=== PATIENT | female | born 1980 | race Caucasian/White ===

== ENCOUNTER → 2018-04-27 13:50 | Outpatient (CLI) | payer OTHER, SELFPAY ==
[2018-04-27 14:18] LABS: Amphetamine/Metha Screen,Urine Negative ng/mL (<1000); Barbiturates Screen,Urine Negative ng/mL (<200); Benzodiazepines Screen,Urine Negative ng/mL (<200); Cannabinoid Screen,Urine Negative ng/mL (<50); Cocaine Screen,Urine Negative ng/mL (<300); Methadone Screen,Urine Negative ng/mL (<300); Opiate Screen,Urine Negative ng/mL (<300); Phencyclidine Screen,Urine Negative ng/mL (<25)
== END ==
PROVIDERS: Visit Provider Nurse Practitioner Family
DX: Z79.899 Other long term (current) drug therapy (principal)
CPT/HCPCS: 80305

== ENCOUNTER → 2018-11-23 14:03 | Outpatient (CLI) | payer BC, SELFPAY ==
[2018-11-23 16:04] LABS: Amphetamine/Metha Screen,Urine Negative ng/mL (<1000); Barbiturates Screen,Urine Negative ng/mL (<200); Benzodiazepines Screen,Urine Negative ng/mL (<200); Cannabinoid Screen,Urine Positive ng/mL (<50); Cocaine Screen,Urine Negative ng/mL (<300); Methadone Screen,Urine Negative ng/mL (<300); Opiate Screen,Urine Negative ng/mL (<300); Phencyclidine Screen,Urine Negative ng/mL (<25)
== END ==
PROVIDERS: Visit Provider Nurse Practitioner Family
DX: Z79.899 Other long term (current) drug therapy (principal)
CPT/HCPCS: 80305

== ENCOUNTER 2019-01-03 08:21 | Observation (INO) ==
--- NOTE | 2019-01-03 08:49 | Emergency Department Note ---
ED Disposition Clinical Impression: Abdominal pain, Bacterial enterocolitis Disposition: Admitted as Observation Condition on Discharge: Good Instructions: DI for Acute Abdomen Referrals: Will Campa MD [Primary Care Provider] - - Critical Care Critical Care Time: No Attestation: On 01/03/19, the high probability of a clinically significant, sudden or life threatening deterioration of the following system(s) required my full and direct attention, intervention and personal management. The time I documented below is in addition to time spent performing reported procedures but includes the following listed in this critical care notation. Medical Decision Making - Medical Records Medical records reviewed: Yes: I reviewed the patient's medical records. - Lj Inquiry Pt receiving controlled substance: No Vital Signs: 01/03/19 08:33 01/03/19 10:34 Temperature 97.7 F Temperature Source Oral Pulse Rate [Right Radial] 111 H 105 H Respiratory Rate 22 Blood Pressure [Right Arm] 140/75 133/83 Blood Pressure Mean [Right Arm] 96 99 Blood Pressure Source [Right Arm] Automatic Cuff Blood Pressure Position [Right Arm] Supine 02 Sat by Pulse Oximetry 98 97 Oxygen Delivery Method Room Air - Lab Data Lab results reviewed: Yes: I reviewed the patient's lab results. Lab Results 01/03/19 09:30: WBC 17.6 H, RBC 4.79, Hgb 15.0, Hct 46.3, MCV 96.7, MCH 31.2, MCHC 32.3, RDW 14.0, Plt Count 289, MPV 7.5, Neut % (Auto) 74.5, Lymph % (Auto) 19.7, [place] % (Auto) 4.5, Eos % (Auto) 1.1, Baso % (Auto) 0.3, Neut # (Auto) 13.1 H, Lymph # (Auto) 3.5, [place] # (Auto) 0.8, Eos # (Auto) 0.2, Baso # (Auto) 0.1, Total Counted 100, Neutrophils % (Manual) 78 H, Band Neutrophils % 1.0, Lymphocytes % (Manual) 13, Monocytes % (Manual) 6, Eosinophils % (Manual) 1, Basophils % (Manual) 1.0, Platelet Estimate Normal, RBC Morphology Normal 01/03/19 09:30: Sodium 134 L, Potassium 4.7, Chloride 100, Carbon Dioxide 24, Anion Gap 14.7, BUN 12, Creatinine 0.85, Estimated Creat Clear 126, Estimated GFR 74, Est GFR ( Amer) 90, Glucose 130 H, Calcium 9.5, Total Bilirubin 0.3, AST 11 L, ALT 21, Alkaline Phosphatase 82, Total Protein 7.8, Albumin 3.8, Globulin 4.0 H, Albumin/Globulin Ratio 1.0 L, Amylase 46, Lipase 107 01/03/19 09:55: Urine Color Yellow, Urine Appearance Cloudy, Urine pH 6.0, Ur Specific [place] 1.010, Urine Protein Trace, Urine Glucose (UA) Negative, Urine Ketones Negative, Urine Blood 3+, Urine Nitrate Negative, Urine Bilirubin Negative, Urine Urobilinogen 0.2, Ur Leukocyte Esterase Negative, Urine RBC 3-5, Urine WBC 3-5, Ur Squamous Epith Cells 10-20, Urine Bacteria 1+ 01/03/19 09:55: Urine HCG, Qual Negative Result diagrams: 01/03/19 09:30 01/03/19 09:30 Orders (Tests/Meds): ED MEDICATIONS Discontinued Medications Generic Name Dose Route Start Last Admin Trade Name Freq PRN Reason Stop Dose Admin Sodium Chloride 500 mls @ 999 mls/hr 01/03/19 11:15 01/03/19 11:42 Sod Chlor 0.9% 1000ml Bag IV 01/03/19 11:45 Not Given .Q31M COLLETTE Sodium Chloride 1,000 mls @ 999 mls/hr 01/03/19 11:45 01/03/19 11:45 Sod Chlor 0.9% 1000ml Bag IV 01/03/19 12:45 999 mls/hr .Q1H1M COLLETTE Administration Abdominal Pain HPI - General Chief Complaint: Abdominal Pain Stated Complaint: dizzy v/d Time Seen by Provider: 01/03/19 08:48 Mode of Arrival: Wheelchair Limitations: No Limitations Description of Symptoms (Recalled from ER Triage Doc. by RN): PT C/O NAUSEA AND DIARRHEA THAT BEGAN AT 0300. PT STATES THAT SHE FEELS FATIGUE, WEAK AND DIZZY AT TIMES. PT C/O ABD CRAMPING IN THE EPIGASTRIC REGION - History of Present Illness MD complaint: abdominal pain Onset (ago): hour(s) (6) Consistency: constant Location: LUQ, RUQ Severity: severe Quality: aching Radiation: none Migration to: no migration Relieving factors: nothing Exacerbating factors: nothing Associated symptoms: nausea, vomiting, diarrhea, syncope - Related Data LMP (females 10-50): current Home Medications Medication Instructions Recorded Confirmed Cariprazine HCl [Vraylar] 1.5 mg PO DAILY 01/03/19 01/03/19 clonazePAM [Clonazepam] 0.5 mg PO BID 01/03/19 01/03/19 lamoTRIgine [Lamotrigine] 25 mg PO BID 01/03/19 01/03/19 Allergies Allergy/AdvReac Type Severity Reaction Status Date / Time risperidone AdvReac Intermediate Galactorrhe Verified 11/23/18 10:14 [facility] History - Hepatitis A Screen Drug use history?: No High risk sexual behaviors?: No History of sexually transmitted infection?: No Currently employed?: No Childcare worker?: No Do you have indoor plumbing?: Yes Do you have electricity?: Yes Attestation statement:: This patient has been screened for Hepatitis A risk factors. Medical History: Reports:: Anxiety, Depression Other Medical History: Reports: Other Comment: Severe manic Bipolar 1 w/ psychotic behavior Other Surgeries: Yes: No Previous Surgery Amputation: No Fractures: No - Social History Smoking Status: Current every day smoker Tobacco Type: cigarettes # Packs/Day (cigarettes): 1 Alcohol Intake: never Substance Use Type: denies use Occupational Status: employed - Psychiatric History Expresses thoughts of harming self/others: None Pschychiatric History:: Reports:: Anxiety, Bipolar Disorder, Depression Family Hx:: No significant family history ROS Obtained: Yes Systems reviewed as appropriate & no additional complaints - Constitutional Constitutional: Reports malaise - Eyes Eyes: Reports system reviewed and no additional complaints, except as docu - ENT Ears, Nose, Mouth, and Throat: Reports system reviewed and no additional complaints, except as docu - Cardiovascular Cardiovascular: Reports system reviewed and no additional complaints, except as docu - Respiratory Respiratory: Yes system reviewed and no additional complaints, except as docu - Gastrointestinal Gastrointestingal: Reports: abdominal pain, diarrhea, nausea, vomiting. Denies: coffee ground emesis, vomiting blood, bright red blood in stools, black, tarry stools - Genitourinary Female Genitourinary: Reports system reviewed and no additional complaints, except as docu - Musculoskeletal Musculoskeletal: Reports system reviewed and no additional complaints, except as docu - Integumentary/Breasts Skin/Breast: Reports system reviewed and no additional complaints, except as docu - Neurologic Neurologic: Reports system reviewed and no additional complaints, except as docu - Endocrine Endocrine: Reports system reviewed and no additional complaints, except as docu - Hematologic/Lymphatic Henatologic/Lymphatic: Reports system reviewed and no additional complaints, except as docu - Allergic/Immunologic Allergic/Immunologic: Reports system reviewed and no additional complaints, except as docu Physical Exam - General General appearance: alert, in no apparent distress - Head Head exam: atraumatic, normocephalic, normal inspection - Eye Eye exam: Present: normal appearance, PERRL, EOMI - ENT ENT exam: Present: mucous membranes moist - Neck Neck exam: Present: normal inspection, full ROM, trachea midline. Absent: meningismus, lymphadenopathy - Chest Chest inspection: Present: normal inspection, symmetric chest wall rise. Absent: tenderness - Respiratory Respiratory exam: Present: normal lung sounds bilaterally. Absent: respiratory distress - Cardiovascular Cardiovascular exam: Present: regular rate, normal rhythm. Absent: JVD - Abdominal Exam Abdominal exam: Present: soft, tenderness, normal bowel sounds. Absent: guarding, rebound, rigidity, organomegaly, trauma, mass, bruit, pulsatile mass, hernia Abdominal tenderness: Present: RUQ, LUQ, mild - Extremities Exam Extremities exam: Present: normal inspection, full ROM, normal capillary refill. Absent: calf tenderness - Back Exam Back exam: Present: normal inspection. Absent: tenderness - Neurological Exam Neurological exam: Present: alert, oriented X3 - Psychiatric Psychiatric exam: Present: normal affect, normal mood - Skin Skin exam: Present: warm, dry, intact, normal color - Lymphatic Lymphatic Findings: no adenopathy
[2019-01-03 09:34] LABS: Basophils # 0.1 K/mm3 (0-0.2); Basophils % 0.3 % (0.1-2.0); Eosinophils # 0.2 K/mm3 (0.0-0.4); Eosinophils % 1.1 % (0.1-12.0); Hematocrit 46.3 % (37.0-47.0); Lymphocytes # 3.5 K/mm3 (0.7-4.5); Lymphocytes % 19.7 % (10-50); Mean Corpuscular HGB Conc 32.3 g/dL (31.8-35.4); Mean Corpuscular Volume 96.7 fl (81-99); Mean Platelet Volume 7.5 fl (7.4-10.4); Monocytes # 0.8 K/mm3 (0.1-1.0); Monocytes % 4.5 % (1.7-9.3); Neutrophils # 13.1 K/mm3 (1.8-7.8); Neutrophils % 74.5 % (37.0-80.0); Platelet Count 289 K/mm3 (142-424); Red Blood Count 4.79 M/mm3 (4.20-5.40); White Blood Count 17.6 K/mm3 (4.8-10.8)
[2019-01-03 09:47] LABS: Albumin Level 3.8 gm/dL (3.4-5.0); Anion Gap 14.7 mEq/L (5-15); Bilirubin,Total 0.3 mg/dL (0.2-1.0); Calcium 9.5 mg/dL (8.5-10.1); Total Protein,Serum 7.8 gm/dL (6.4-8.2)
[2019-01-03 10:06] LABS: Microscopic, Urine URINE MICROSCOPIC (MICROSCOPIC)
[2019-01-03 10:08] LABS: Appearance,Urine CLOUDY (Clear); Bilirubin,Urine Negative (Negative); Blood, Urine 3+ (Negative); Color,Urine YELLOW (Yellow); Glucose,Urine (UA) Negative (Negative); Ketones,Urine Negative (Negative); Leukocyte Esterase,Urine Negative (Negative); Protein,Urine TRACE (Negative); Urobilinogen,Urine 0.2 EU/dl (0.2)
[2019-01-03 10:14] LABS: Eosinophils % 1 % (0-3); Lymphocytes % 13 % (10-50); Monocytes % 6 % (2-9); Neutrophils % 78 % (42-76); RBC Morphology Normal; Total Cells Counted 100
[2019-01-03 10:20] LABS: Bacteria,Urine 1+ /lpf
--- NOTE | 2019-01-03 14:21 | Pharmacy Consult Notes ---
[facility] Pharmacy VTE Monitoring - Patient Demographics Admission date: 01/03/19 Report Date: 01/03/19 Time: 14:21 Allergies/Adverse Reactions: Patient Allergies risperidone Adverse Reaction (Intermediate, Verified 11/23/18 10:14) Galactorrhea Height: 1.63 m Weight: 90.718 kg Patient Problems: Current Active Problems Abdominal pain (Acute) Bacterial enterocolitis (Acute) - VTE Risk Labs: VTE Related Lab Results Hgb 15.0 g/dL (12.2-16.2) 01/03/19 09:30 Hct 46.3 % (37.0-47.0) 01/03/19 09:30 Plt Count 289 K/mm3 (142-424) 01/03/19 09:30 BUN 12 mg/dL (7-18) 01/03/19 09:30 Creatinine 0.85 mg/dL (0.55-1.02) 01/03/19 09:30 Estimated Creat Clear 126 mL/min (50-200) 01/03/19 09:30 - Prophylaxis VTE Prophylaxis Ordered?: Yes Types of VTE Prophylaxis: TEDS Knee High Location of Applied Device: Bilateral Lower Extremeties - VTE Diagnosis Confirmed Treatment or plan recommended: Continue Current Treatment
[2019-01-04 06:54] LABS: Basophils % 0.4 % (0.1-2.0); Eosinophils # 0.2 K/mm3 (0.0-0.4); Eosinophils % 2.2 % (0.1-12.0); Hematocrit 41.1 % (37.0-47.0); Lymphocytes # 2.7 K/mm3 (0.7-4.5); Lymphocytes % 34.1 % (10-50); Mean Corpuscular HGB Conc 31.4 g/dL (31.8-35.4); Mean Corpuscular Volume 97.6 fl (81-99); Mean Platelet Volume 7.4 fl (7.4-10.4); Monocytes # 0.6 K/mm3 (0.1-1.0); Monocytes % 7.3 % (1.7-9.3); Neutrophils # 4.5 K/mm3 (1.8-7.8); Neutrophils % 55.9 % (37.0-80.0); Platelet Count 239 K/mm3 (142-424); Red Blood Count 4.21 M/mm3 (4.20-5.40); Red Cell Distribution Width 13.9 % (11.5-17.5)
[2019-01-04 07:03] LABS: Albumin/Globulin Ratio 0.9 (1.1-1.8); Anion Gap 8.6 mEq/L (5-15); Bilirubin,Total 0.4 mg/dL (0.2-1.0); Globulin 3.4 gm/dl (1.3-3.2); Total Protein,Serum 6.4 gm/dL (6.4-8.2)
[2019-01-04 07:22] LABS: Calcium 8.5 mg/dL (8.5-10.1)
--- NOTE | 2019-01-04 16:51 | History & Physical Report ---
*Admission Date: 01/03/19 *Chief complaint: weakness and felt faint *History of present illness: this wf presented to the ed with acute onset of vomiting and diarrhea with near syncope - C/O NAUSEA AND DIARRHEA THAT BEGAN AT 0300. PT STATES THAT SHE FEELS FATIGUE, WEAK AND DIZZY AT TIMES. PT C/O ABD CRAMPING IN THE EPIGASTRIC REGIOn, pt had abn ct and was admitted for ivf and abx - pt did meet sirs criteria H History I have reviewed the patient's past medical history: Yes Medical History: Reports:: Anxiety, Depression Denies:: Cancer, Diabetes Mellitus Type 1, Diabetes Mellitus Type 2 *Have you ever received a pneumonia vaccine?: No *Have you received a flu vaccine this season?: No Other Medical History: Reports: Other Other Surgeries: Yes: No Previous Surgery, (x2) Amputation: No Fractures: No - *Social History Educational Level: Attended College Smoking Status: Current every day smoker Tobacco Type: cigarettes # Packs/Day (cigarettes): 1 Alcohol Intake: never Substance Use Type: marijuana Last Used Substance: unknown *Occupational Status:: employed Housing: house Household Members: spouse, children *Travel in the last 8 weeks: None - Psychiatric History Expresses thoughts of harming self/others: None Pschychiatric History:: Reports:: Anxiety, Bipolar Disorder, Depression Family Hx:: Hypertension Review of Systems - Review of Systems Review of systems:: pertinent systems reviewed and negative unless documented below - Constitutional Denies headache(s) - Eyes Denies change in vision - ENT Denies sore throat - *Cardiovascular Denies chest pain at rest - *Respiratory Denies cough - *Gastrointestinal Reports abdominal pain, Reports loose stools, Reports nausea, Reports vomiting, Denies bright, red blood in stools - *Genitourinary Denies blood in urine - *Musculoskeletal Denies joint pain - Integumentary/Breasts Denies rash - *Neurologic Denies seizure-like activity - Psychiatric Denies anxiety Meds Home Medications Medication Instructions Recorded Confirmed Type Cariprazine HCl [Vraylar] 1.5 mg PO DAILY 01/03/19 01/03/19 History clonazePAM [Clonazepam] 0.5 mg PO BID 01/03/19 01/03/19 History lamoTRIgine [Lamotrigine] 25 mg PO BID 01/03/19 01/03/19 History Allergies Allergy/AdvReac Type Severity Reaction Status Date / Time risperidone AdvReac Intermediate Galactorrhe Verified 11/23/18 10:14 a Exam Vital signs and Labs for Last 24 Hours: Temp Pulse Resp BP Pulse Ox 97.7 F 102 H 16 144/87 H 99 01/04/19 15:51 01/04/19 15:51 01/04/19 15:51 01/04/19 15:51 01/04/19 15:51 Laboratory Results - last 24 hr 01/03/19 15:30: Stl Aeromonas (PCR) Not detected, Stl C. cayetanensis PCR Not detected, Stool Rotavirus (PCR) Not detected, Stl Adenov F 40/41 PCR Not detected, Stool Astrovirus (PCR) Not detected, Stool Campylobacter PCR Not detected, Stl C.difficile Tox PCR Not detected, Stool Cryptosporidium PCR Not detected, Stl E.coli Shiga Tox PCR Not detected, Stool E coli O157 PCR Not detected, Stl Enterotoxigenic E PCR Not detected, Stool EPEC (PCR) Not detected, Stool EAEC (PCR) Not detected, Stl E. histolytica PCR Not detected, Stool Giardia Lamblia PCR Not detected, Stool Salmonella PCR Not detected, Stool Sapovirus (PCR) Not detected, Stl P. shigelloides PCR Not detected, Stl Shigella/EIEC PCR Not detected, St Y.enterocolitica PCR Not detected, Stool Vibrio (PCR) Not detected, Stl Vibrio cholerae PCR Not detected, Stl Norovirus GI/GII PCR Not detected 01/04/19 06:37: WBC 8.0 D, RBC 4.21, Hgb 13.0 D, Hct 41.1, MCV 97.6, MCH 30.7, MCHC 31.4 L, RDW 13.9, Plt Count 239, MPV 7.4, Neut % (Auto) 55.9, Lymph % (Auto) 34.1, [place] % (Auto) 7.3, Eos % (Auto) 2.2, Baso % (Auto) 0.4, Neut # (Auto) 4.5, Lymph # (Auto) 2.7, [place] # (Auto) 0.6, Eos # (Auto) 0.2, Baso # (Auto) 0.0 01/04/19 06:37: Sodium 139, Potassium 4.6, Chloride 107, Carbon Dioxide 28, Anion Gap 8.6, BUN 5 L D, Creatinine 0.82, Estimated Creat Clear 132, Estimated GFR 77, Est GFR ( Amer) 93, Glucose 101 D, Calcium 8.5 D, Total Bilirubin 0.4, AST 8 L D, ALT 17, Alkaline Phosphatase 63, Total Protein 6.4, Albumin 3.0 L D, Globulin 3.4 H, Albumin/Globulin Ratio 0.9 L I & O for Last 24 hours: Intake & Output 01/02/19 01/03/19 01/04/19 01/05/19 11:59 11:59 11:59 11:59 Intake Total 3170 / 3170 480 / 480 Balance 3170 / 3170 480 / 480 Weight 200 lb 201 lb 7 oz - Constitutional no acute distress, obese - *Routine HEENT Exam Head: Present: normocephalic Eye: Present: EOMI, PERRL ENT: Present: mucous membranes dry - *Routine Neck Exam Present: supple - *Routine Respiratory Exam Present: CTA bilaterally - *Routine Cardiovascular Exam Present: RRR, murmur - *Routine Abdominal Exam Present: soft - *Routine Extremities Exam Present: full ROM - *Routine Skin Exam Present: intact - *Routine Neurological Exam Present: alert, oriented X3, CN II-XII intact - Routine Psychiatric Exam Present: normal affect Assessment and Plan (1) Enteritis Current visit: Yes Status: Acute Category: Medical Code(s): K52.9 - Noninfective gastroenteritis and colitis, unspecified (2) Obesity (BMI 30.0-34.9) Current visit: Yes Status: Acute Category: Medical Code(s): E66.9 - Obesity, unspecified (3) SIRS (systemic inflammatory response syndrome) Current visit: Yes Status: Acute Category: Medical Code(s): R65.10 - Systemic inflammatory response syndrome (SIRS) of non-infectious origin without acute organ dysfunction
--- NOTE | 2019-01-05 11:38 | Discharge Summary ---
General - General Admission date:: 01/03/19 Discharge date: 01/05/19 HPI HPI: this wf presented to the ed with acute onset of vomiting and diarrhea with near syncope - C/O NAUSEA AND DIARRHEA THAT BEGAN AT 0300. PT STATES THAT SHE FEELS FATIGUE, WEAK AND DIZZY AT TIMES. PT C/O ABD CRAMPING IN THE EPIGASTRIC REGIOn, pt had abn ct and was admitted for ivf and abx - pt did meet sirs criteria Hospital Course Hospital Course: pt with improvement in gi sx and was jeanmarie diet with dec diarrhea and improved wbc with ivf and abx - pt was able to ambulate and will be d/c to home but has improved sx but still some sx and will not be able to return to work till at least 5 more days of abx and will be d/c to see us on 01/09 and return to work 01/10 Objective Vital signs: Temp Pulse Resp BP Pulse Ox 98.3 F 92 H 18 135/89 95 01/05/19 08:00 01/05/19 08:00 01/05/19 08:00 01/05/19 08:00 01/05/19 08:00 no acute distress, obese - *Routine HEENT Exam Head: Present: normocephalic Eye: Present: EOMI, PERRL. Absent: conjunctival icterus ENT: Present: mucous membranes moist - *Routine Neck Exam Present: supple - *Routine Respiratory Exam Present: CTA bilaterally - *Routine Cardiovascular Exam Present: murmur - *Routine Abdominal Exam Present: soft. Absent: tenderness - *Routine Extremities Exam Present: full ROM - *Routine Skin Exam Present: intact - *Routine Neurological Exam Present: alert, oriented X3, CN II-XII intact - Routine Psychiatric Exam Present: normal affect DS: Diagnosis - Discharge Diagnosis (1) Enteritis Status: Acute (2) Obesity (BMI 30.0-34.9) Status: Acute (3) SIRS (systemic inflammatory response syndrome) Status: Acute (4) Enterocolitis Status: Acute Discharge Plan - Patient Discharge Instructions ACTIVITY: Continue current activity DIET: continue same diet Patient Instructions: Acute Abdominal Pain, DI for Abdominal Pain-Adult, DI for Nausea -- Adult - Follow up Plan Disposition: Home, Self-Correction Medications: Home Medications Medication Instructions Recorded Confirmed Type Cariprazine HCl [Vraylar] 1.5 mg PO DAILY 01/03/19 01/03/19 History clonazePAM [Clonazepam] 0.5 mg PO BID 01/03/19 01/03/19 History lamoTRIgine [Lamotrigine] 25 mg PO BID 01/03/19 01/03/19 History Ondansetron HCl [Zofran 4mg Tab] 4 mg PO QID #28 tab 01/05/19 Rx metroNIDAZOLE [Flagyl 500mg 500 mg PO Q8H #21 tab 01/05/19 Rx Tablet] Prescriptions/Medication Reconciliation: New metroNIDAZOLE [Flagyl 500mg Tablet] 500 mg PO Q8H #21 tab Ondansetron HCl [Zofran 4mg Tab] 4 mg PO QID #28 tab Continued lamoTRIgine [Lamotrigine] 25 mg PO BID Cariprazine HCl [Vraylar] 1.5 mg PO DAILY clonazePAM [Clonazepam] 0.5 mg PO BID - Problem Reconciliation Problems Reviewed?: Yes
== END 2019-01-05 12:52 | disposition home or self-care (01) ==
LOC: 2ND 08:21 → ER 08:21 → 2ND 14:20
PROVIDERS: ADMIT Emergency Medicine; ATTEND Emergency Medicine
CPT/HCPCS: 36415; 74176; 80053; 81001; 81025; 82150; 83690; 85007; 85025; 87506; 96366; 99284; G0378; J2543

== ENCOUNTER → 2019-03-08 17:06 | Outpatient (CLI) | payer BC, SELFPAY ==
[2019-03-08 19:41] LABS: Amphetamine/Metha Screen,Urine Negative ng/mL (<1000); Barbiturates Screen,Urine Negative ng/mL (<200); Benzodiazepines Screen,Urine Negative ng/mL (<200); Cannabinoid Screen,Urine Positive ng/mL (<50); Cocaine Screen,Urine Negative ng/mL (<300); Methadone Screen,Urine Negative ng/mL (<300); Opiate Screen,Urine Negative ng/mL (<300); Phencyclidine Screen,Urine Negative ng/mL (<25)
== END ==
PROVIDERS: Visit Provider Nurse Practitioner Family
DX: Z79.899 Other long term (current) drug therapy (principal)
CPT/HCPCS: 80305

== ENCOUNTER → 2020-03-03 11:55 | Outpatient (CLI) | payer BC, SELFPAY ==
[2020-03-03 13:22] LABS: Alanine Aminotransferase 27 U/L (12-78); Albumin Level 4.8 g/dl (3.5-5.0); Albumin/Globulin Ratio 1.7 (1.1-1.8); Alkaline Phosphatase 108 U/L (38-126); Anion Gap 15.9 mEq/L (5-15); Aspartate Amino Transferase 34 U/L (14-36); Bilirubin,Total 0.6 mg/dl (0.2-1.3); Blood Urea Nitrogen 9 mg/dl (7-17); Calcium 10.1 mg/dl (8.4-10.2); Carbon Dioxide 27 mmol/L (22.0-30.0); Chloride 100 mmol/L (98-107); Estimated Glomerular Filt Rate 110 ml/min (>60); GFR (African American) 133 ML/MIN (>60); Globulin 2.9 g/dL (1.3-3.2); Glucose 121 mg/dl (74-100); Potassium 3.9 mmoL/L (3.5-5.1); Sodium 139 mmol/L (136-145); Total Protein,Serum 7.7 g/dl (6.3-8.2)
[2020-03-03 13:25] LABS: Basophils # 0.1 K/mm3 (0-0.2); Eosinophils # 0.1 K/mm3 (0.0-0.4); Eosinophils % 1.2 % (0.1-12.0); Hematocrit 50.3 % (37.0-47.0); Hemoglobin 16.9 g/dL (12.2-16.2); Lymphocytes # 1.7 K/mm3 (0.7-4.5); Lymphocytes % 21.2 % (10-50); Mean Corpuscular HGB Conc 33.5 g/dL (31.8-35.4); Mean Corpuscular Volume 101.4 fl (81-99); Mean Platelet Volume 9.2 fl (7.4-10.4); Monocytes # 0.5 K/mm3 (0.1-1.0); Monocytes % 5.7 % (1.7-9.3); Neutrophils # 5.6 K/mm3 (1.8-7.8); Neutrophils % 70.9 % (37.0-80.0); Platelet Count 305 K/mm3 (142-424); Red Blood Count 4.96 M/mm3 (4.20-5.40); Red Cell Distribution Width 15.2 % (11.5-17.5); White Blood Count 7.9 K/mm3 (4.8-10.8)
[2020-03-03 13:36] LABS: Hemoglobin A1C 5.3 % (4.0-6.0)
[2020-03-03 13:53] LABS: Thyroid Stimulating Hormone 1.95 uIU/mL (0.465-4.68)
[2020-03-03 14:11] LABS: Vitamin B12 214 pg/mL (239-931)
[2020-03-03 14:21] LABS: Iron 164 ug/dL (37-170)
[2020-03-03 14:30] LABS: Total Iron Binding Capacity 360 ug/dL (265-497)
[2020-03-11 10:45] LABS: 1,25 Dihydroxy Vitamin D 53 pg/mL (.); 1,25-Dihydroxy, Vitamin D-2 <10 pg/mL (.); 1,25-Dihydroxy, Vitamin D-3 49 pg/mL (.)
== END ==
PROVIDERS: Visit Provider Nurse Practitioner Psychiatric/Mental Health
DX: Z00.00 Encounter for general adult medical examination without abnormal findings (principal); Z79.899 Other long term (current) drug therapy
CPT/HCPCS: 36415; 80053; 82607; 82652; 83036; 83540; 83550; 84443; 85025

== ENCOUNTER 2020-12-28 09:11 | Emergency (ER) | payer BC, SELFPAY ==
[2020-12-28 09:30] VITALS: BP 162/105; PULSE 100; RESP 20; TEMP 36.7; O2SAT 98; BMI 34.3
--- NOTE | 2020-12-28 10:04 | HMH.EDUTC ---
[facility] Disposition Clinical Impression: Encounter for laboratory testing for COVID-19 virus, Viral syndrome Disposition: Home, Self-Care Condition on Discharge: Good Instructions: DI for Viral Syndrome, DI for COVID-19 (Suspected or Confirmed ), Preventing the Spread of Coronavirus Discharge Instructions Additional Instructions: *Monitor Temp, Over the counter Motrin or Tylenol as directed/as needed Tylenol every 4 hours and Motrin every 6 hours (as long as your family doctor has told you that you can take it) for fever or pa-in. and straight to ER if unable to lower temp less than 101.0 after medication given *Warm salt water gargles may help to soothe the throat *Throat Lozenges *Warm fluids like tea with honey may help to soothe the throat *Sleep elevated *Humidifier/Vaporizer Your throat swab was sent for culture. Those results are typically sent to your primary care. Be sure to follow up in 2-3 days with your family doctor/primary care physician if no improvement so they can review those result and treat if necessary. If you don?t have a primary care doctor, I recommend you get one but in the mean time, you will have to return to a walk in clinic Follow up IMMEDIATELY for new or worsening symptoms or no Noticeable improvement over the next 48-72 hours. 911 for difficulty breathing or swallowing Make sure to follow up with your Family Doctor for re-evaluation of blood pressure You were tested for today for COVID19 your test result should be back in the next 24-48 hours, Check the [facility] to see if your test results are back in the next 48 it may say detected that means your result is positive.You was given handout instructions on how log on and see your results. If you do not have internet access you may call the [facility] for your results [phone] You was given a handout with instructions for Self Quarantine and Self isolation for while you wait on test results and what to do if they are positive If you are positive the Health Dept will be contacting you also Make sure to take your Vitamins Vit. C Vit D and Zinc if you can take them Referrals: Will Campa MD [Primary Care Provider] - As needed Time of Disposition: 10:10 Medical Decision Making - Lj Inquiry Pt receiving controlled substance: No Lj was queried for this patient: No Vital Signs: 12/28/20 09:30 Temperature 98.0 F Temperature Source Oral Pulse Rate [Right Brachial] 100 H Respiratory Rate 20 Blood Pressure [Right Arm] 162/105 H Blood Pressure Mean [Right Arm] 124 Blood Pressure Source [Right Arm] Automatic Cuff Blood Pressure Position [Right Arm] Sitting 02 Sat by Pulse Oximetry 98 Oxygen Delivery Method Room Air Orders (Tests/Meds): ORDERS Category Date Time Status Covid-19 Nasal PCR ([facility]) Routine Lab 12/28/20 09:45 Ordered Medical Decision Narrative: Patient states that she is suppose to see PCP for blood pressure [facility] HPI - General Stated complaint: covid test Time Seen by Provider: 12/28/20 10:04 Mode of Arrival: Ambulatory Source of Information: Patient Limitations: No Limitations Description of Symptoms (Recalled from Triage Doc. by RN): PATIENT C/O FEVER, SWEATS, CHILLS, HEADACHE, AND SWOLLEN LYMPH NODES IN NECK SINCE YESTERDAY. REQUESTING COVID TEST HEENT Symptoms (Recalled from RN notes): Yes Resp Symptoms (Recalled from RN notes): No Skin Symptoms (Recalled from RN notes): No MS Symptoms (Recalled from RN notes): No Functional Status (Recalled from RN notes): WNL - History of Present Illness Provider Complaint: Patient states that she hasnt been feeling well since yesterday Denies known exposure to COVID but is having similar symptoms States that she has been having chills, body aches, and today her lymph nodes was swollen lymph nodes so she came in wanted to get tested for COVID - Related Data Home Medications Medication Instructions Recorded Confirmed Buspirone HCl [Buspar 10mg 20
[2020-12-28 10:19] VITALS: BP 162/105; PULSE 100; RESP 20; TEMP 36.7; O2SAT 98
[2020-12-28 21:18] LABS: UTC Strep Screen (Rapid) Negative (Negative)
== END 2020-12-28 10:21 | disposition home or self-care (01) ==
PROVIDERS: Emergency Provider Nurse Practitioner; PCP Emergency Medicine
DX: B34.9 Viral infection, unspecified (principal); Z20.822 Contact with and (suspected) exposure to COVID-19; F41.8 Other specified anxiety disorders; F17.210 Nicotine dependence, cigarettes, uncomplicated; F12.10 Cannabis abuse, uncomplicated
CPT/HCPCS: 87880; 99203; G0463; U0003

== ENCOUNTER 2022-09-14 10:48 | Emergency (ER) | payer BC, SELFPAY ==
[2022-09-14] VITALS (8 sets, daily range): BP systolic 148–229; BP diastolic 77–134; PULSE 72–121; RESP 16–20; TEMP 36.6–36.8; O2SAT 93–98; BMI 40.7
--- NOTE | 2022-09-14 10:58 | PC.NURSE ---
ED MD AT BEDSIDE
--- NOTE | 2022-09-14 11:00 | CT_ITS ---
FINAL REPORT TECHNIQUE: Thin section axial CT images of the chest were obtained with contrast. 3D reformatted images were also obtained. This study was performed with techniques to keep radiation doses as low as reasonably achievable (ALARA). Individualized dose reduction techniques using automated exposure control or adjustment of mA and/or kV according to the patient's size were employed. CLINICAL HISTORY: chest pain COMPARISON: None FINDINGS: There is no evidence of pulmonary embolism. There is no evidence of thoracic aortic aneurysm or dissection. There is no evidence of mediastinal or hilar mass or adenopathy. Moderate emphysema. There is a posterior right upper lobe nodule measuring 6 mm. Limited images of the upper abdomen are unremarkable. IMPRESSION: No evidence of pulmonary embolism. 6 mm nodule right upper lobe. Six-month follow-up recommended. Reviewed, Interpreted and Dictated by Miguel Hernandez III, MD Transcribed by Deandra Sol Authenticated and [facility]
--- NOTE | 2022-09-14 11:00 | CT_ITS ---
FINAL REPORT TECHNIQUE: Pre-and postcontrast images of the abdomen through the pubic symphysis were performed by computed tomography. Extensive 3-D reconstruction images were performed. A CTA was performed. This study was performed with techniques to keep radiation doses as low as reasonably achievable (ALARA). Individualized dose reduction techniques using automated exposure control or adjustment of mA and/or kV according to the patient''s size were employed. CLINICAL HISTORY: abd pain epigastric pain COMPARISON: None FINDINGS: ABDOMEN/PELVIS: The lung bases are clear. Precontrast images demonstrate no evidence of nephrolithiasis. No adrenal masses are identified. The liver, spleen and pancreas are unremarkable. Sigmoid diverticulosis without evidence of acute diverticulitis. The appendix is unremarkable. There is chronic irregularity of the bilateral parasymphyseal regions of uncertain etiology, could represent sequela from prior injury. CTA: No evidence of abdominal aortic aneurysm or dissection. The SMA, celiac axis, and GARRETT are patent. There is no significant stenosis or calcification. The renal arteries are patent bilaterally without evidence of stenosis. Mild vascular calcifications are noted. The iliac arteries are patent without significant stenosis. IMPRESSION: No evidence of significant arterial stenosis. Reviewed, Interpreted and Dictated by Miguel Hernandez III, MD Transcribed by Deandra Sol Authenticated and [facility]
--- NOTE | 2022-09-14 11:07 | HMH.EDGENADL ---
Discharge Plan Disposition Patient Disposition: Home, Self-Care Condition: Good Chief Complaint: Abdominal Pain Prescriptions Prescriptions: New sucralfate [Carafate] 1 gram tablet 1 g PO TID 28 Days Qty: 84 0RF pantoprazole [Protonix] 40 mg tablet,delayed release (DR/EC) 40 mg PO DAILY 28 Days Qty: 28 0RF No Action aripiprazole [Abilify] 10 mg tablet 10 mg PO QHS Qty: 30 1RF buspirone 10 mg tablet 20 mg PO BID Qty: 120 1RF hydroxyzine pamoate [Vistaril] 25 mg capsule 25 mg PO TID PRN (Reason: for increased anxiety) Qty: 90 0RF lamotrigine [Lamictal] 100 mg tablet 100 mg PO BID Qty: 60 1RF trazodone 100 mg tablet 100 mg PO QHS PRN (Reason: insomnia) Qty: 30 1RF Referrals Follow up/Referrals: Supriya Casillas APRN [Staff Physician] - See instructions Will Campa MD [Primary Care Provider] - See instructions Clinical Impressions Clinical Impression: Abdominal pain, Gastritis Instructions Patient Instructions: DI for Acute Abdominal Pain Print Language Print Language: Chinese Discharge ED Provider: Nilo Stubbs General Adult HPI General Chief complaint: Abdominal Pain Stated complaint: Phys ref, upper abd pain Time Seen by Provider: 09/14/22 14:16 Mode of Arrival: Ambulatory Limitations: No Limitations Description of Symptoms (Recalled from ER Triage Doc. by RN): PT SENT FROM PCP FOR FURTHER EVALUATION OF UPPER EPIGASTRIC PAIN THAT STARTED MONDAY NIGHT. C/O N/V. DIARRHEA THAT STARTED TODAY. DENIES FEVER. History of Present Illness HPI narrative: Patient presents to the emergency department with epigastric abdominal tenderness for the last 3 days. She states that it is continuously worsening and in excruciating pain right now. She states that there is some associated right upper quadrant pain, diarrhea, nausea and vomiting. She denies any fever or chills. States that she has no urinary symptoms. Denies any previous history of similar symptoms. Related Data Previous Rx's Medication Instructions Recorded aripiprazole 10 mg tablet (Abilify) 10 mg PO QHS #30 tabs 06/22/22 buspirone 10 mg tablet 20 mg PO BID . #120 tabs 06/22/22 hydroxyzine pamoate 25 mg capsule 25 mg PO TID PRN for increased 06/22/22 (Vistaril) anxiety #90 caps lamotrigine 100 mg tablet 100 mg PO BID #60 tabs 06/22/22 (Lamictal) trazodone 100 mg tablet 100 mg PO QHS PRN insomnia #30 tabs 06/22/22 pantoprazole 40 mg tablet,delayed 40 mg PO DAILY 4 weeks #28 tabs 09/14/22 release (Protonix) sucralfate 1 gram tablet (Carafate) 1 g PO TID 4 weeks #84 tabs 09/14/22 Allergies Allergy/AdvReac Type Severity Reaction Status Date / Time risperidone AdvReac Intermediate Galactorrhe Verified 09/14/22 10:02 a [facility] Disclaimer: The information contained in this section may have been updated after the patient was seen, as this information can be updated by other users. Medical History Alcohol abuse Bipolar II disorder Generalized anxiety disorder Insomnia Social History Smoking Status: Current every day smoker tobacco type: cigarettes packs per day: 1 second hand exposure: No alcohol intake: never substance use type: marijuana current occupational status: employed Travel in the last 8 weeks: None household members: spouse and children housing: house number of children: 3 ROS Obtained: Yes All systems reviewed & no additional complaints except as documented Gastrointestinal Gastrointestingal: Reports abdominal pain, diarrhea and vomiting Physical Exam General General appearance: alert, anxious and obese Head Head exam: atraumatic, normocephalic and normal inspection Eye Eye exam: Present normal appearance, PERRL and EOMI Chest Chest inspection: Present normal inspection and symmetric chest wall rise Respiratory Respiratory exam: Present normal
--- NOTE | 2022-09-14 11:16 | PC.NURSE ---
Attempted IV access x2. Veins blew both times. Burton RN attempting at this time
[2022-09-14 11:34] LABS: Basophils % 0.3 % (0.1-2.0); Eosinophils # 0.3 K/mm3 (0.0-0.4); Eosinophils % 2.2 % (0.1-12.0); Hematocrit 48.6 % (37.0-47.0); Hemoglobin 16.1 g/dL (12.2-16.2); Lymphocytes # 2.6 K/mm3 (0.7-4.5); Lymphocytes % 18.7 % (10-50); Mean Corpuscular HGB Conc 33.1 g/dL (31.8-35.4); Mean Corpuscular Hemoglobin 31.3 pg (27.0-31.2); Mean Corpuscular Volume 94.5 fl (81-99); Mean Platelet Volume 8.4 fl (7.4-10.4); Monocytes # 0.7 K/mm3 (0.1-1.0); Monocytes % 4.9 % (1.7-9.3); Neutrophils # 10.4 K/mm3 (1.8-7.8); Neutrophils % 73.9 % (37.0-80.0); Platelet Count 310 K/mm3 (142-424); Red Blood Count 5.14 M/mm3 (4.20-5.40); Red Cell Distribution Width 13.9 % (11.5-17.5); White Blood Count 14.1 K/mm3 (4.8-10.8)
--- NOTE | 2022-09-14 11:36 | PC.NURSE ---
checked on pt nothing needed at this time, tap allen at bedside
[2022-09-14 11:48] LABS: Alanine Aminotransferase 29 U/L (12-78); Albumin Level 4.6 g/dl (3.5-5.0); Albumin/Globulin Ratio 1.3 (1.1-1.8); Alkaline Phosphatase 109 U/L (38-126); Anion Gap 18.3 mEq/L (5-15); Aspartate Amino Transferase 31 U/L (14-36); Bilirubin,Total 0.8 mg/dl (0.2-1.3); Blood Urea Nitrogen 10 mg/dl (7-17); Calcium 9.6 mg/dl (8.4-10.2); Carbon Dioxide 28 mmol/L (22.0-30.0); Chloride 97 mmol/L (98-107); Creatinine Clearance Estimated 197 mL/min (50-200); Estimated Glomerular Filt Rate 109 ml/min (>60); GFR (African American) 131 ML/MIN (>60); Globulin 3.6 g/dL (1.3-3.2); Glucose 140 mg/dl (74-100); Lipase 420 U/L (23-300); Potassium 3.3 mmoL/L (3.5-5.1); Sodium 140 mmol/L (136-145); Total Protein,Serum 8.2 g/dl (6.3-8.2)
[2022-09-14 11:54] LABS: HCG Qualitative, Serum Negative (Negative)
--- NOTE | 2022-09-14 12:18 | PC.NURSE ---
Rounded on patient at this time, updated we were waiting on CT results at this time. Pt advised her pain was now at a 2 and she was feeling better then when she came in. No other needs at this time.
--- NOTE | 2022-09-14 12:53 | PC.NURSE ---
PT ASSISTED TO BR
--- NOTE | 2022-09-14 13:05 | PC.NURSE ---
Updated pt that we were waiting on CT results. No new needs at this time
--- NOTE | 2022-09-14 13:26 | PC.NURSE ---
ROUNDED ON PT AT THIS TIME. NO NEEDS VOICED
--- NOTE | 2022-09-14 14:15 | PC.NURSE ---
rounded on pt states she hurting in her stomach relayed message to elder doshi, visitor at bedside
== END 2022-09-14 14:31 | disposition home or self-care (01) ==
PROVIDERS: Emergency Provider Emergency Medicine; PCP Emergency Medicine
DX: K29.70 Gastritis, unspecified, without bleeding (principal); R10.11 Right upper quadrant pain; F17.210 Nicotine dependence, cigarettes, uncomplicated
CPT/HCPCS: 71275; 74174; 80053; 83690; 84703; 85025; 96361; 96374; 96375; 99285; J2405; Q9967

== ENCOUNTER → 2022-11-25 12:55 | Outpatient (CLI) | payer BC, SELFPAY | PROVIDERS: PCP Emergency Medicine; Visit Provider Emergency Medicine | DX: S91.302A Unspecified open wound, left foot, initial encounter (principal); A03.0 Shigellosis due to Shigella dysenteriae | CPT/HCPCS: 87070; 87077; 87186; 87205 ==

== ENCOUNTER 2023-11-24 23:04 | Emergency (ER) | payer BC, SELFPAY ==
[2023-11-24 23:09] VITALS: BP 153/109; PULSE 121; RESP 16; TEMP 36.7; O2SAT 96; BMI 35.2
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
[2023-11-24] MEDS: ACETAMINOPHEN 500MG TAB 1000 MG PO (23:28)
[2023-11-24] MEDS: TET/DIPHTH/PERT-ADULT 0.5ML SYRINGE 0.5 ML IM (23:31)
[2023-11-24 23:46] LABS: Urine Pregnancy, HCG Qual. Negative (Negative)
--- NOTE | 2023-11-25 00:02 | PC.NURSE ---
ring ring finger placed in finger spica splint, wrapped in curlex,
[2023-11-25 00:12] VITALS: BP 142/88; PULSE 101; RESP 18; TEMP 36.6; O2SAT 97
== END 2023-11-25 00:14 ==
PROVIDERS: Emergency Medicine; Emergency Provider Emergency Medicine; PCP Physician Assistant
DX: S62.604A Fracture of unspecified phalanx of right ring finger, initial encounter for closed fracture (principal); M79.641 Pain in right hand; Y04.0XXA Assault by unarmed brawl or fight, initial encounter; Z23 Encounter for immunization
CPT/HCPCS: 73130; 81025; 90471; 90715; 99283

== ENCOUNTER 2024-10-18 09:58 | Outpatient (CLI) | payer BC, SELFPAY ==
[2024-10-18 18:13] LABS: Basophils # 0.1 K/mm3 (0-0.2); Basophils % 0.7 % (0.1-2.0); Eosinophils # 0.1 Kmm3 (0.0-0.4); Eosinophils % 0.8 % (0.1-12.0); Hematocrit 47.3 % (37.0-47.0); Hemoglobin 15.9 g/dL (12.2-16.2); Immature Granulocytes # 0.04 10^3uL; Immature Granulocytes % 0.4 %; Lymphocytes # 3.2 K/mm3 (0.7-4.5); Lymphocytes % 29.8 % (10-50); Mean Corpuscular HGB Conc 33.6 g/dL (31.8-35.4); Mean Corpuscular Hemoglobin 32.5 pg (27.0-31.2); Mean Corpuscular Volume 96.7 fl (81-99); Mean Platelet Volume 10.9 fl (7.4-10.4); Monocytes # 0.8 K/mm3 (0.1-1.0); Monocytes % 7.1 % (1.7-9.3); Neutrophils # 6.6 K/mm3 (1.8-7.8); Neutrophils % 61.2 % (37.0-80.0); Nucleated Red Blood Cells # 0 10^3/uL; Nucleated Red Blood Cells % 0 %; Platelet Count 316 K/mm3 (142-424); Red Blood Count 4.89 M/mm3 (4.20-5.40); Red Cell Distribution Width 15.5 % (11.5-17.5); Red Cell Distribution Width-SD 54.5 fL; White Blood Count 10.7 K/mm3 (4.8-10.8)
[2024-10-18 18:39] LABS: Hemoglobin A1C 6.1 % (4.0-6.0)
[2024-10-18 19:34] LABS: Alanine Aminotransferase 22 U/L (12-78); Albumin Level 4.9 g/dl (3.5-5.0); Albumin/Globulin Ratio 1.6 (1.1-1.8); Alkaline Phosphatase 71 U/L (38-126); Anion Gap 16.8 mEq/L (5-15); Aspartate Amino Transferase 30 U/L (14-36); Bilirubin,Total 0.6 mg/dl (0.2-1.3); Blood Urea Nitrogen 11 mg/dl (7-17); Calcium 10.6 mg/dl (8.4-10.2); Carbon Dioxide 28 mmol/L (22.0-30.0); Chloride 99 mmol/L (98-107); Chol/HDL Ratio 4.5 (1-3.5); Cholesterol 304 mg/dl (140-200); Estimated Glomerular Filt Rate 53 ml/min (>60); GFR (African American) 65 ML/MIN (>60); Globulin 3.1 g/dL (1.3-3.2); Glucose 112 mg/dl (74-100); HDL Cholesterol 67 mg/dl (40-60); Potassium 3.8 mmoL/L (3.5-5.1); Sodium 140 mmol/L (136-145); Triglycerides 118 mg/dl (30-150); VLDL Cholesterol 24 mg/dL (0-40)
[2024-10-18 19:42] LABS: 25-OH Vitamin D, Total 16.9 ng/mL (30-100)
[2024-10-18 19:54] LABS: Direct LDL Cholesterol 218.54 mg/dL (100-129)
[2024-10-18 20:03] LABS: Thyroid Stimulating Hormone 1.84 uIU/mL (0.465-4.68)
--- OUTSIDE RECORDS SUMMARY | 2024-10-21 10:26 | XMS_ITS | Clinical Summary ---
Author Organization Healthcare Address [address] [place] [address] Care Team Providers Care Rectification Printer Name Role Phone Unavailable Primary Care Provider Unavailabl e Social History Tobacco Use Types Packs/Day Years Used Date Smoking Tobacco: Never Assessed Comments Unknown Sex and Gender Information Value Date Recorded Sex Assigned at Not on file Legal Sex Female 8:12 PM EDT Gender Identity Not on file Sexual Orientation Not on file Plan of Treatment Not on file
== END 2024-10-18 23:59 | disposition home or self-care (01) ==
LOC: LAB.DROPOF 10-21 09:59
PROVIDERS: PCP Family Medicine; Visit Provider Family Medicine
DX: Z00.00 Encounter for general adult medical examination without abnormal findings (principal)
CPT/HCPCS: 80053; 80061; 82306; 83036; 84443; 85025